=== PATIENT | female | born 1990 | race Caucasian/White ===

== ENCOUNTER 2018-01-11 14:56 | Emergency (ER) | payer MEDICAID ==
[2017-01-29 21:18] VITALS: Wt 51.3 kg
[~2018-01-11 14:56] MED LIST: ALB17R INH; ALBU8.5H IH; ALBU8.5H12 IH; AMOX-362 PO; AMOX-559 PO; ARI10 PO; AUG500 PO; AZI250 PO; AZIT-18 PO; BENA1TAB49 PO; BENZ100C4 PO; CEPH-13 PO; CEPH500T7 PO; CLAR-1 PO; CYCL10TA29 PO; DOCO200C PO; FAMO-67 PO; FERR-53 PO; FOLI-68 PO; HYDR-385 PO; IBUP800T37 PO; LEVO-85 PO; LOR5 PO; LOR5/325 PO; NO ROUTINE MEDS; NORE0.3516 PO; NORE0.3529 PO; NYST1POW25 PO; OMEP-137 PO; ONDA4TAB PO; OXYC-373 PO; PAN40 PO; PER PO; PHEN100T27 PO; PRE20 PO; PREN-127 PO; PROM-110 PO; RANI-324 PO; RANI15SY PO; STERIOD INHALER; [UNRECOGNIZED DRUG - CODE] PO
[2018-01-11 15:08] VITALS: BP 112/70
[2018-01-11] MEDS ORDERED: NITR-105 PO (16:07)
[2018-01-11] MEDS ORDERED: PHEN100T27 PO (16:07)
--- NOTE | 2018-01-11 16:07 | ER Report ---
History and Physical Time Seen By MD: 15:10 Hx. of Stated Complaint: PATIENT STATES THAT SHE THINKS THAT SHE IS GETTING A UTI; PATIENT STATES SHE HAS BEEN GOING ALOT TO THE BATHROOM AND HAS PAIN WHEN SHE PEES HPI/ROS Chief concern: burning with urination HPI: 27 year old female presents with reports of burning with urination and increased frequency. Denies difficulty initiating or stopping urinary stream. Reports chills, denies sweats or fever. Denies nausea, vomiting, diarrhea. Reports history of recurrent UTI, with 3 UTIs in 2017. States she has had frequent UTIs since being a child. Reports sexual intercourse yesterday, denies any forms of control. States LMP 3 weeks ago. Denies vaginal discharge, abnormal vaginal bleeding, or abdominal pain. Review of Systems: General: Reports chills. Denies fevers, sweats. Respiratory: Richar shortness of breath Cardiac: Richar chest pain. GI: Denies nausea, vomiting, diarrhea. : Reports burning with urination and increased frequency. Allergies: Coded Allergies: Sulfa (Sulfonamide Antibiotics) (Verified Allergy, Mild, ITCHING, RASH, ) Home Meds Active Scripts Phenazopyridine Hcl (PHENAZOPYRIDINE HCL) 100 Mg Tablet, 100 MG PO TID Y for PAIN, #12 TAB Prov:MALCOM DUMONT [facility] 01/11/18 Nitrofurantoin Monohyd/M-Cryst (MACROBID 100 MG CAPSULE) 100 Mg Capsule, 100 MG PO BID, #12 CAPSULE Prov:MALCOM DUMONT [facility] 01/11/18 Azithromycin 250 Mg Tab (AZITHROMYCIN 250 MG TAB) 250 Mg Tablet, 1 TAB PO QDAY, #6 TAB Take 2 tabs today and then 1 tab a day until gone. Prov:REX SAWYER PA-C 10/19/17 Reported Medications Albuterol Sulfate 90 Mcg/Act (PROAIR HFA 90 MCG/ACT) 8.5 Gm Hfa.aer.ad, 1-2 PUFF IH 3-4XD, INHALER 09/21/16 Past Medical/Surgical History History of recurrent UTIs. Conditions include heart murmur, asthma, H.pylori. Medical history includes coarctation of the aorta diagnosed at 2 weeks of age. Surgeries include section x 2, and tonsillectomy. Reviewed Nurses Notes: Yes Old Medical Records Reviewed: No Hx Smoking: No Smoking Status: Never Smoker Exposure to Second Hand Smoke?: Yes Hx Substance Use Disorder: No Hx Alcohol Use: No Constitutional Vital Sign - Last 24 Hours 01/11/18 15:08 Temp 97.6 Pulse 74 Resp 17 B/P (MAP) 112/70 Pulse Ox 97 O2 Delivery Room Air Physical Exam Physical exam: General: AOx3 Respiratory: clear to auscultation bilaterally. Cardiac: regular rate and rhythm GI: bowel sounds normoactive all quadrants. Scattered tympany and dullness to percussion. No tenderness to palpation. Negative CVA tenderness. exam deferred After obtaining a thorough HPI and ROS, and physical exam, the following differential diagnoses were considered: UTI Medical Decision Making Data Points Laboratory Hematology Test 01/11/18 15:01 Urine Color Yellow Urine Clarity Slightly-cloudy Urine pH 5.0 pH (4.8-9.5) Urine Specific [place] 1.020 Urine Protein Negative mg/dL (NEGATIVE) Urine Glucose (UA) Negative mg/dL (NEGATIVE) Urine Ketones Negative mg/dL (NEGATIVE) Urine Blood Moderate (NEGATIVE) Urine Nitrite Negative (NEGATIVE) Urine Bilirubin Negative (NEGATIVE) Urine Urobilinogen Negative mg/dL (0.2-1.9) Urine Leukocyte Esterase Moderate (NEGATIVE) Urine RBC 51 /HPF (0-2/HPF) Urine WBC 168 /HPF (0-5/HPF) Urine Squamous Epithelial Cells Many /LPF (</=FEW) Urine Bacteria Few /HPF (NONE-FEW) Urine Mucus None /HPF (NONE-FEW) Urine HCG, Qualitative Negative (NEGATIVE) Chemistry Test 01/11/18 15:01 Urine Color Yellow Urine Clarity Slightly-cloudy Urine pH 5.0 pH (4.8-9.5) Urine Specific [place] 1.020 Urine Protein Negative mg/dL (NEGATIVE) Urine Glucose (UA) Negative mg/dL (NEGATIVE) Urine Ketones Negative mg/dL (NEGATIVE) Urine Blood Moderate (NEGATIVE) Urine Nitrite Negative (NEGATIVE) Urine Bilirubin Negative (NEGATIVE) Urine Urobilinogen Negative mg/dL (0.2-1.9) Urine Leukocyte Esterase Moderate (NEGATIVE) Urine RBC 51 /HPF (0-2/HPF) Urine WBC 168 /HPF (0-5/HPF) Urine Squamous Epithelial Cells Many /LPF (</=FEW) Urine Bacteria Few /HPF (NONE-FEW) Urine Mucus None /HPF (NONE-FEW) Urine HCG, Qualitative Negative (NEGATIVE) Urinalysis Test 01/11/18 15:01 Urine Color Yellow Urine Clarity Slightly-cloudy Urine pH 5.0 pH (4.8-9.5) Urine Specific [place] 1.020 Urine Protein Negative mg/dL (NEGATIVE) Urine Glucose (UA) Negative mg/dL (NEGATIVE) Urine Ketones Negative mg/dL (NEGATIVE) Urine Blood Moderate (NEGATIVE) Urine Nitrite Negative (NEGATIVE) Urine Bilirubin Negative (NEGATIVE) Urine Urobilinogen Negative mg/dL (0.2-1.9) Urine Leukocyte Esterase Moderate (NEGATIVE) Urine RBC 51 /HPF (0-2/HPF) Urine WBC 168 /HPF (0-5/HPF) Urine Squamous Epithelial Cells Many /LPF (</=FEW) Urine Bacteria Few /HPF (NONE-FEW) Urine Mucus None /HPF (NONE-FEW) Urine HCG, Qualitative Negative (NEGATIVE) ED Course/Re-evaluation ED Course Thorough HPI and ROS obtained from patient. Physical exam revealed temperature of 97.6 degrees, negative CVA tenderness, bowel sounds normoactive all quadrants , scattered tympany and dullness to percussion, and nontender to palpation. Differentials considered include urinary tract infection. Urinalysis revealed a urinary tract infection. HcG test negative. Patient treated with nitrofurantoin and phenazopyridine Hcl. Decision to Disposition Date: Jan 11, 2018 Decision to Disposition Time: 16:03 Depart Departure Latest Vital Signs Vital Signs Date Time Temp Pulse Resp B/P (MAP) Pulse Ox O2 Delivery O2 Flow Rate FiO2 01/11/18 15:08 97.6 74 17 112/70 97 Room Air Impression: Primary Impression: Urinary tract infection Condition: Improved Disposition: HOME OR SELF-CARE Referrals: BESSIE MCLAUGHLIN (PCP) New Scripts Phenazopyridine Hcl (PHENAZOPYRIDINE HCL) 100 Mg Tablet 100 MG PO TID Y for PAIN, #12 TAB Prov: MALCOM DUMONT 01/11/18 Nitrofurantoin Monohyd/M-Cryst (MACROBID 100 MG CAPSULE) 100 Mg Capsule 100 MG PO BID, #12 CAPSULE Prov: MALCOM DUMONT 01/11/18 Patient Instructions: Urinary Tract Infection in Women (ED) Additional Instructions: Increase fluid intake. Get plenty of rest. Follow up with your primary care provider in the next week to make sure that the UTI is getting better. Take the prescriptions as directed. Return to the ER if condition worsens. Problem Qualifiers Primary Impression: Urinary tract infection Urinary tract infection type: acute cystitis Hematuria presence: with hematuria Qualified Codes: N30.01 - Acute cystitis with hematuria MALCOM DUMONT Jan 11, 2018 16:07
[2018-01-11] MEDS ORDERED: NITROFURANTOIN MONO 100 MG PO ONE (16:10)
[2018-01-11] MEDS ORDERED: PHENAZOPYRIDINE 200 MG TAB TH 2 TAB/BOTTLE PO ONE (16:10)
== END 2018-01-11 16:34 | disposition home or self-care (01) ==
LOC: ER 15:20
DX: N30.01 Acute cystitis with hematuria (principal)
CPT/HCPCS: 81001; 81025; 87077; 87088; 87186; 99282

== ENCOUNTER 2018-05-06 15:38 | Emergency (ER) | payer SELFPAY ==
[2017-01-29 21:18] VITALS: Wt 52.2 kg
[~2018-05-06 15:38] MED LIST changes: +NITR-105 PO; -RANI-324 PO; +RANI-366 PO
[2018-05-06] MEDS ORDERED: ONDANSETRON 4 MG TAB PO ONE (16:10)
[2018-05-06 16:21] LABS: PLATELET COUNT, AUTOMATED 262 K/uL (150-450)
[2018-05-06] MEDS ORDERED: KETOROLAC 60 MG/2 ML VIAL IM ONE (16:25)
--- NOTE | 2018-05-06 16:47 | ER Report ---
History and Physical Time Seen By MD: 15:50 Hx. of Stated Complaint: PATIENT REPORTS A HEADACHE THAT STARTED LAST NIGHT AND DRY HEAVING THROUGHOUT TODAY HPI/ROS Chief Complaint: "Nausea, vomiting, headache" HPI: 28-year-old female patient reports to the Emergency Department with nausea , vomiting, and left sided orbital headache. She reports the headache started yesterday with her menses and the nausea and vomiting stared today. States, this is not the worst headache she has ever had in her life but she is having some sensitivity to light. Reports the headache is dull an over her left eye. She reports not having an appetite and unable to "keep anything down." Associated chills and fatigue. She reports no alleviating or aggravating factors. She reports no treatments tried. The patient states she did have a sinus infection last Friday that has resolved. ROS: Constitutional: denies fever, reports chills HEENT: reports left sided orbital headache, wears glasses, no change in vision, reports photophobia Respiratory: denies shortness of breath or difficulty breathing CV: denies chest pain GI: reports nausea and vomiting, denies constipation or diarrhea : denies changes in urination Allergies: Coded Allergies: Sulfa (Sulfonamide Antibiotics) (Verified Allergy, Mild, ITCHING, RASH, ) Home Meds Active Scripts Nitrofurantoin Monohyd/M-Cryst (MACROBID 100 MG CAPSULE) 100 Mg Capsule, 100 MG PO BID for 5 Days, CAPSULE Prov:MALCOM DUMONT 05/06/18 Reported Medications Albuterol Sulfate 90 Mcg/Act (PROAIR HFA 90 MCG/ACT) 8.5 Gm Hfa.aer.ad, 1-2 PUFF IH 3-4XD, INHALER 09/21/16 Discontinued Scripts Phenazopyridine Hcl (PHENAZOPYRIDINE HCL) 100 Mg Tablet, 100 MG PO TID Y for PAIN, #12 TAB Prov:MALCOM DUMONT 01/11/18 Nitrofurantoin Monohyd/M-Cryst (MACROBID 100 MG CAPSULE) 100 Mg Capsule, 100 MG PO BID, #12 CAPSULE Prov:MALCOM DUMONT 01/11/18 Azithromycin 250 Mg Tab (AZITHROMYCIN 250 MG TAB) 250 Mg Tablet, 1 TAB PO QDAY, #6 TAB Take 2 tabs today and then 1 tab a day until gone. Prov:REX SAWYER JAVIER 10/19/17 Past Medical/Surgical History Repaired coarctation of the aorta at Asthma diagnosed in [employer] x 2 Reviewed Nurses Notes: Yes Hx Smoking: No Smoking Status: Never Smoker Exposure to Second Hand Smoke?: Yes Hx Substance Use Disorder: No Hx Alcohol Use: No Constitutional Vital Sign - Last 24 Hours 05/06/18 05/06/18 05/06/18 05/06/18 15:42 15:47 16:00 16:08 Pulse 80 Resp 20 B/P (MAP) 118/72 (87) 102/76 (85) Pulse Ox 94 05/06/18 05/06/18 05/06/18 05/06/18 16:30 16:38 17:00 17:08 Pulse 69 57 B/P (MAP) 95/57 (70) 85/61 (69) Pulse Ox 93 94 Physical Exam General: 28-year-old in no acute distress HEENT: normocephalic, atraumatic, TMs BL bonita butts without effusion, pupils BL equal, round, reactive to light and accommodation Respiratory: BL CTA CV: Clear S1 S2, present murmur GI: normoactive BS x 4, no hepato-splenomegaly, suprapubic pain on palpation Musculoskeletal: Moves all extremities Differential diagnoses considered: migraine, gastroenteritis, UTI Medical Decision Making Data Points Result Diagram: 05/06/18 1616 05/06/18 1616 Laboratory Hematology Test 05/06/18 15:45 05/06/18 16:16 Urine Color Red Urine Clarity Slightly-cloudy Urine pH 6.0 pH (4.8-9.5) Urine Specific [employer] 1.004 Urine Protein 100 mg/dL (NEGATIVE) Urine Glucose (UA) Negative mg/dL (NEGATIVE) Urine Ketones Negative mg/dL (NEGATIVE) Urine Blood Large (NEGATIVE) Urine Nitrite Negative (NEGATIVE) Urine Bilirubin Negative (NEGATIVE) Urine Urobilinogen Negative mg/dL (0.2-1.9) Urine Leukocyte Esterase Trace (NEGATIVE) Urine RBC 114 /HPF (0-2/HPF) Urine WBC 33 /HPF (0-5/HPF) Urine Squamous Epithelial Cells Many /LPF (</=FEW) Urine Bacteria Negative /HPF (NONE-FEW) Urine Mucus None /HPF (NONE-FEW) Red Blood Count 5.48 M/uL (4.17-5.56) Mean Corpuscular Volume 83.6 fL (80.0-96.0) Mean Corpuscular Hemoglobin 28.7 pg (26.0-33.0) Mean Corpuscular Hemoglobin Concent 34.4 g/dL (32.0-36.0) Red Cell Distribution Width 13.2 % (11.5-14.5) Mean Platelet Volume 7.5 fL (7.2-11.1) Neutrophils (%) (Auto) 81.3 % (39.4-72.5) Lymphocytes (%) (Auto) 13.7 % (17.6-49.6) Monocytes (%) (Auto) 4.4 % (4.1-12.4) Eosinophils (%) (Auto) 0.2 % (0.4-6.7) Basophils (%) (Auto) 0.4 % (0.3-1.4) Nucleated RBC Relative Count (auto) 0.0 /100WBC Neutrophils # (Auto) 5.0 K/uL (2.0-7.4) Lymphocytes # (Auto) 0.8 K/uL (1.3-3.6) Monocytes # (Auto) 0.3 K/uL (0.3-1.0) Eosinophils # (Auto) 0.0 K/uL (0.0-0.5) Basophils # (Auto) 0.0 K/uL (0.0-0.1) Nucleated RBC Absolute Count (auto) 0.00 K/uL Sodium Level 140 mmol/L (137-145) Potassium Level 3.6 mmol/L (3.5-5.0) Chloride Level 105 mmol/L (98-107) Carbon Dioxide Level 22 mmol/L (22-31) Blood Urea Nitrogen 9 mg/dl (7-18) Creatinine 0.60 mg/dl (0.52-1.04) Glomerular Filtration Rate Calc > 60.0 Random Glucose 90 mg/dl (75-110) Calcium Level 9.1 mg/dl (8.4-10.2) Total Bilirubin 0.8 mg/dl (0.2-1.3) Aspartate Amino Transf (AST/SGOT) 28 U/L (0-35) Alanine Aminotransferase (ALT/SGPT) 23 U/L (0-56) Alkaline Phosphatase 52 U/L (0-126) Total Protein 7.9 g/dl (6.3-8.2) Albumin 4.4 g/dl (3.5-5.0) Chemistry Test 05/06/18 15:45 05/06/18 16:16 Urine Color Red Urine Clarity Slightly-cloudy Urine pH 6.0 pH (4.8-9.5) Urine Specific [employer] 1.004 Urine Protein 100 mg/dL (NEGATIVE) Urine Glucose (UA) Negative mg/dL (NEGATIVE) Urine Ketones Negative mg/dL (NEGATIVE) Urine Blood Large (NEGATIVE) Urine Nitrite Negative (NEGATIVE) Urine Bilirubin Negative (NEGATIVE) Urine Urobilinogen Negative mg/dL (0.2-1.9) Urine Leukocyte Esterase Trace (NEGATIVE) Urine RBC 114 /HPF (0-2/HPF) Urine WBC 33 /HPF (0-5/HPF) Urine Squamous Epithelial Cells Many /LPF (</=FEW) Urine Bacteria Negative /HPF (NONE-FEW) Urine Mucus None /HPF (NONE-FEW) White Blood Count 6.1 k/uL (4.5-11.0) Red Blood Count 5.48 M/uL (4.17-5.56) Hemoglobin 15.7 g/dL (12.0-16.0) Hematocrit 45.8 % (34.0-47.0) Mean Corpuscular Volume 83.6 fL (80.0-96.0) Mean Corpuscular Hemoglobin 28.7 pg (26.0-33.0) Mean Corpuscular Hemoglobin Concent 34.4 g/dL (32.0-36.0) Red Cell Distribution Width 13.2 % (11.5-14.5) Platelet Count 262 K/uL (150-450) Mean Platelet Volume 7.5 fL (7.2-11.1) Neutrophils (%) (Auto) 81.3 % (39.4-72.5) Lymphocytes (%) (Auto) 13.7 % (17.6-49.6) Monocytes (%) (Auto) 4.4 % (4.1-12.4) Eosinophils (%) (Auto) 0.2 % (0.4-6.7) Basophils (%) (Auto) 0.4 % (0.3-1.4) Nucleated RBC Relative Count (auto) 0.0 /100WBC Neutrophils # (Auto) 5.0 K/uL (2.0-7.4) Lymphocytes # (Auto) 0.8 K/uL (1.3-3.6) Monocytes # (Auto) 0.3 K/uL (0.3-1.0) Eosinophils # (Auto) 0.0 K/uL (0.0-0.5) Basophils # (Auto) 0.0 K/uL (0.0-0.1) Nucleated RBC Absolute Count (auto) 0.00 K/uL Glomerular Filtration Rate Calc > 60.0 Calcium Level 9.1 mg/dl (8.4-10.2) Total Bilirubin 0.8 mg/dl (0.2-1.3) Aspartate Amino Transf (AST/SGOT) 28 U/L (0-35) Alanine Aminotransferase (ALT/SGPT) 23 U/L (0-56) Alkaline Phosphatase 52 U/L (0-126) Total Protein 7.9 g/dl (6.3-8.2) Albumin 4.4 g/dl (3.5-5.0) Urinalysis Test 05/06/18 15:45 Urine Color Red Urine Clarity Slightly-cloudy Urine pH 6.0 pH (4.8-9.5) Urine Specific [employer] 1.004 Urine Protein 100 mg/dL (NEGATIVE) Urine Glucose (UA) Negative mg/dL (NEGATIVE) Urine Ketones Negative mg/dL (NEGATIVE) Urine Blood Large (NEGATIVE) Urine Nitrite Negative (NEGATIVE) Urine Bilirubin Negative (NEGATIVE) Urine Urobilinogen Negative mg/dL (0.2-1.9) Urine Leukocyte Esterase Trace (NEGATIVE) Urine RBC 114 /HPF (0-2/HPF) Urine WBC 33 /HPF (0-5/HPF) Urine Squamous Epithelial Cells Many /LPF (</=FEW) Urine Bacteria Negative /HPF (NONE-FEW) Urine Mucus None /HPF (NONE-FEW) ED Course/Re-evaluation ED Course History and physical examination obtained. Differential diagnoses considered and shared with the patient. CBC, CMP, and UA were obtained. The patient is having a urinary tract infection. She was treated with Zofran for her nausea and Toradol for her headache in the emergency department today She reports that she feels much better and would like to go home. She has been sent home for self-care on Macrobid and encouraged to return to the emergency department if her condition does not improve. Decision to Disposition Date: May 06, 2018 Decision to Disposition Time: 17:18 Depart Departure Latest Vital Signs Vital Signs Date Time Temp Pulse Resp B/P (MAP) Pulse Ox O2 Delivery O2 Flow Rate FiO2 05/06/18 17:08 57 94 05/06/18 17:00 85/61 (69) 05/06/18 15:42 20 Impression: Primary Impression: UTI (urinary tract infection) Additional Impression: Head ache Condition: Improved Disposition: HOME OR SELF-CARE Referrals: BESSIE MCLAUGHLIN (PCP) New Scripts Nitrofurantoin Monohyd/M-Cryst (MACROBID 100 MG CAPSULE) 100 Mg Capsule 100 MG PO BID for 5 Days, CAPSULE Prov: MALCOM DUMONT 05/06/18 Patient Instructions: Acute Headache (ED), Urinary Tract Infection in Women (ED ) Additional Instructions: Take antibiotics once in the morning and once at night for five days. We will call you if the cultures indicates we need to change your antibiotic. Return to the Emergency Department if your condition worsens. Continue to rest and push fluids. Advance diet as tolerated. Problem Qualifiers Primary Impression: UTI (urinary tract infection) Urinary tract infection type: acute cystitis Hematuria presence: with hematuria Qualified Codes: N30.01 - Acute cystitis with hematuria Additional Impression: Head ache Headache type: unspecified Headache chronicity pattern: acute headache Intractability: not intractable Qualified Codes: R51 - Headache MALCOM DUMONT May 06, 2018 16:47
[2018-05-06 17:00] VITALS: BP 85/61
[2018-05-06] MEDS ORDERED: NITR-105 PO (17:24)
== END 2018-05-06 17:34 | disposition home or self-care (01) ==
LOC: ER 15:40
DX: N30.01 Acute cystitis with hematuria (principal); R51 Headache
CPT/HCPCS: 81001; 85025; 87088; 96372; 99283; J1885; S0119; 82040; 82247; 82310; 82374; 82435; 82565; 82947; 84075; 84132; 84155; 84295; 84450; 84460; 84520

== ENCOUNTER 2018-07-01 20:03 | Emergency (ER) | payer MEDICAID ==
[2017-01-29 21:18] VITALS: BMI 27.3
[2018-07-01 20:06] VITALS: BP 108/60
[2018-07-01] MEDS ORDERED: CEPH500T7 PO (20:16)
--- NOTE | 2018-07-01 20:16 | ER Report ---
History and Physical Time Seen By MD: 20:07 HPI/ROS CHIEF COMPLAINT: Rash HISTORY OF PRESENT ILLNESS: Patient is a 28-year-old female who presents the ED with complaint of a rash that occurred today. She states that it is not really itchy but feels like her throat has been itchy sometimes. The rashes noted on her abdomen and chest. She denies any trouble breathing. She has not noted any tongue or lip swelling. She states that she was recently diagnosed with a urinary tract infection yesterday and has just started Macrobid for this. She does not believe she has been on Macrobid in the past for a urinary tract infection. She states that she is but is uncertain how far along she has. She is diagnosed with a urinary tract infection by the women's clinic. She denies any fever. REVIEW OF SYSTEMS: Constitutional: No fever, no chills. Cardiovascular: No chest pain, no palpitations. Respiratory: No cough, no shortness of breath. Gastrointestinal: See history of present illness. Musculoskeletal: No back pain. Skin: See history of present illness. Allergies: Coded Allergies: Sulfa (Sulfonamide Antibiotics) (Verified Allergy, Mild, ITCHING, RASH, ) Home Meds Active Scripts Nitrofurantoin Monohyd/M-Cryst (MACROBID 100 MG CAPSULE) 100 Mg Capsule, 100 MG PO BID for 5 Days, CAPSULE Prov:MALCOM DUMONT [employer] 05/06/18 Reported Medications Albuterol Sulfate 90 Mcg/Act (PROAIR HFA 90 MCG/ACT) 8.5 Gm Hfa.aer.ad, 1-2 PUFF IH 3-4XD, INHALER 09/21/16 Reviewed Nurses Notes: Yes Old Medical Records Reviewed: Yes Hx Smoking: No Smoking Status: Never Smoker Exposure to Second Hand Smoke?: Yes Hx Substance Use Disorder: No Hx Alcohol Use: No Physical Exam General Appearance: The patient is alert, has no immediate need for airway protection and no signs of toxicity. Patient appears be no acute distress. Eyes: Pupils equal and round no pallor or injection. ENT, Mouth: Mucous membranes are moist. Respiratory: There are no retractions, lungs are clear to auscultation. Cardiovascular: Regular rate and rhythm. Skin: There is an erythematous faint this, fine maculopapular rash noted on the abdomen and chest. No lip or tongue swelling appreciated. Musculoskeletal: Neck is supple non tender. Extremities are nontender, nonswollen and have full range of motion. Medical Decision Making ED Course/Re-evaluation ED Course Discussed with her given that she just her the antibiotic and now she developed a rash is possible that she is allergic to Macrobid. Will discontinue this and have her start Keflex for her urinary tract infection. She states that [facility] did obtain a urine culture as well. Decision to Disposition Date: Jul 01, 2018 Decision to Disposition Time: 20:15 Depart Departure Impression: Primary Impression: UTI (urinary tract infection) Additional Impression: Rash Condition: Improved Disposition: HOME OR SELF-CARE Referrals: BESSIE MCLAUGHLIN (PCP) New Scripts Cephalexin 500 Mg Tab (KEFLEX 500 MG TAB) 500 Mg Tablet 500 MG PO Q8H, #21 TAB Prov: REX SAWYER PA-C 07/01/18 Patient Instructions: Acute Rash (ED), Urinary Tract Infection in Women (ED) Additional Instructions: Stay well-hydrated. Follow-up with primary care provider in 2-3 days. If having any worsening or concerning symptoms may return to the emergency department. Problem Qualifiers Primary Impression: UTI (urinary tract infection) Urinary tract infection type: acute cystitis Hematuria presence: without hematuria Qualified Codes: N30.00 - Acute cystitis without hematuria REX SAWYER PA-C Jul 01, 2018 20:16
== END 2018-07-01 20:20 | disposition home or self-care (01) ==
LOC: ER 20:18
DX: N30.00 Acute cystitis without hematuria (principal); R21 Rash and other nonspecific skin eruption
CPT/HCPCS: 99281

== ENCOUNTER 2019-02-03 12:48 | Inpatient (IN) | payer MEDICAID ==
[2019-02-03] VITALS (26 sets, daily range): BP systolic 79–110; BP diastolic 48–64; Ht 146.1 cm; Wt 66.2 kg
[~2019-02-03] VITALS: Ht 146.1 cm; Wt 66.2 kg
[2019-02-03] MEDS ORDERED: LR(*) 1000 ML BAG 1,000 ML IV PRN ×2 (13:51→18:24)
[2019-02-03] MEDS ORDERED: FLUSH 10 ML SYR IVP PRN (13:55)
[2019-02-03] MEDS ORDERED: LIDOCAINE/SOD BICARB 8.4% SYR ONE (13:56)
[2019-02-03 14:26] LABS: PLATELET COUNT, AUTOMATED 203 K/uL (150-450)
[2019-02-03] MEDS ORDERED: FAMOTIDINE(*) 20MG/50ML PREMIX 50 ML IVPB ONE (15:16)
[2019-02-03] MEDS ORDERED: ceFAZolin(*) 2GM/D5W 50ML 50 ML IVPB ONE ×2 (15:16→15:18)
[2019-02-03] MEDS ORDERED: LR(*) 1000 ML BAG 1,000 ML IV SCH (15:18)
[2019-02-03] MEDS ORDERED: FAMOTIDINE 20 MG/50 ML PREMIX IVPB ONE (15:20)
[2019-02-03] MEDS ORDERED: fentaNYL CITR 100 MCG/2 ML AMP ONE (15:24)
[2019-02-03] MEDS ORDERED: ONDANSETRON 4 MG/2 ML VIAL ONE (15:24)
--- NOTE | 2019-02-03 15:40 | History & Physical ---
History of Present Illness Age of Patient: 28 : 4 Para or TPAL: 2011 EDC per LMP: Feb 15, 2019 EDC per U/S: Feb 15, 2019 Estimated Gestational Age: 38.2 Chief Complaint Contractions and headache History of Present Illness Patient is a 28 yo at 38w2d. She comes to the hospital with c/o contractions which have increased over the last few hours. She denies CP, SOB, F/C, N/V, RUQ pain, changes in vision, vaginal bleeding or discharge, LOF. +FM. Here obstetric history has been uncomplicated. She has a previous history of section x2 and would like a repeat. She would also like a tubal ligation. No other concerns or complaints. 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 No noxious habits. Family History: FH: cancer MAT GRANDFATHER, Onset:Unknown (BLADDER AND LUNG CANCER) No Family History of: FH: diabetes mellitus FH: heart disease FH: hypertension Malignant hyperthermia Med Rec Home Meds Reported Medications Vits W-Ca,Fe,Fa(<1MG) ( VITAMINS) 1 Each Tablet, 1 EACH PO D AILY, TAB 01/26/19 Albuterol Sulfate 90 Mcg/Act (PROAIR HFA 90 MCG/ACT) 8.5 Gm Hfa.aer.ad, 1-2 PUFF IH 3-4XD, INHALER 09/21/16 Review of Systems All Systems Reviewed/Normal: Yes, Except as Noted Exam General Exam General Apperance: Alert/Awake/No Acute Distress Neuro: No Gross deficits Eyes: Normal Extraocular Movement & Vison Cardiovascular: Regular Rate and Rhythm Abdomen: Gravid - Non-Tender Extremities: No Cyanosis,Clubbing or Edema Psychological: Alert & Oriented X3, Appropriate Mood & Affect Cervical Dialation: 5 Cervical Effacement (%): 80 Cervical Consistency: Soft Cervical Position: Mid Station: -2 Presentation: Vertex Uterine Contractions(Q min): 7 Uterine Contraction Strength: Moderate UC Resting Tone: Soft Fetus Feeling Movement?: Yes Heart Tone Variabilty: Moderate FHT Accelerations: 15X15 FHT Decelerations: Variable FHT Category: II Medical Decision Making Data Points Result Diagram: 02/03/19 1414 VTE Prophylasis: Adult Deep Vein Thrombosis/Pulmonary: No Pharmacological Contraindicati: Pt at Low Risk for VTE Mechanical Contraindications: Pt at Low Risk for VTE Assessment and Plan Hospital Day: 0 VIDEO PRODUCTION ASSISTANT Assessment: Stable (Patient doing well and is active labor. Will proceed with repeat lower transverse section.) VIDEO PRODUCTION ASSISTANT Plan: Routine Labor Care (Proceed to the ER for repeat lower transverse section and bilateral tubal ligation.) LIBAN ARELLANO MD Feb 03, 2019 15:40
[2019-02-03] MEDS ORDERED: ePHEDrine 25 MG/5 ML DISP.SYR IVP ONE (15:48)
[2019-02-03] MEDS ORDERED: MIDAZOLAM 2 MG/2 ML VIAL ONE ×2 (16:50→17:01)
[2019-02-03] MEDS ORDERED: PROPOFOL EMUL(*) 10MG/ML 20 ML 20 ML ONE (17:03)
[2019-02-03] MEDS ORDERED: KETOROLAC 30 MG/ML VIAL ONE (17:48)
[2019-02-03] MEDS ORDERED: OXYTOCIN 30 UNIT/D5LR 500 ML 500 ML IV PRN (17:51)
[2019-02-03] MEDS ORDERED: PROMETHAZINE 25 MG/ML 1 ML AMP IVP PRN (17:55)
[2019-02-03] MEDS ORDERED: ONDANSETRON 4 MG/2 ML VIAL IV PRN (17:55)
[2019-02-03] MEDS ORDERED: ACETAMINOPHEN 325 MG TAB PO PRN (17:55)
[2019-02-03] MEDS ORDERED: ZOLPIDEM TARTRATE 5 MG TAB PO PRN (17:55)
[2019-02-03] MEDS ORDERED: LANOLIN OINT 7 GM TUBE TP PRN (17:55)
--- NOTE | 2019-02-03 18:13 | Post Operative Note ---
Operative Note - [facility] Operative Day Date: Feb 03, 2019 Time: 18:00 Physicians Surgeon: Paula Vail MD Superintendent Refuse Disposal: Charlene Waggoner PA-C Anesthesia: Holly Rivera CRNA Diagnosis Pre-Op Diagnosis: 28 yo at 38w2d c/w 8w sono with previous history of section in active labor with desire for repeat section, desire for bilateral tubal ligation Post-Op Diagnosis: Same Procedure Findings: Normal uterus, tubes, ovaries. Male infant born at 1622 hrs in cephalic presentation with light meconium noted on rupture of the amniotic bag. Placenta delivered complete and intact at 1625. Baby weight 2930g. Apgars 8/9. Procedure(s): 1.Repeat lower transverse section via Pfannenstiel skin incision 2. Bilateral tubal ligation via Adams protcol The patient was taken to the operating room where spinal anesthesia was found to be adequate. She was then prepped and draped in the normal sterile fashion in the dorsal supine position with a leftward tilt. A Pfannenstiel skin incision was then made with the scalpel and carried through to the underlying layer of fascia with the bovie. The fascia was incised in the midline and the incision extended laterally with the Gee scissors. The superior aspect of the fascial incision was then grasped with the Sahil clamps, elevated, and the underlying rectus muscles dissected off bluntly. Attention was then turned to the inferior aspect of this incision, which, in a similar fashion, was grasped, tented up with the Sahil clamps, and the rectus muscle dissected off bluntly. The rectus muscles were then in the midline, and the peritoneum identified, tented up and entered sharply with the Metzenbaum scissors. The peritoneal incision was then extended superiorly and inferiorly with good visualization of the bladder. The bladder blade was then inserted and the vesicouterine peritoneum identified, grasped with the pick-ups, and entered sharply with the Metzenbaum scissors. This incision was then extended laterally and the bladder flap created digitally. The bladder blade was then reinserted and the lower uterine segment incised in a transverse fashion with the scalpel. The uterine incision was then extended laterally digitally. The bladder blade was removed and the infants head delivered atraumatically with a loose body cord followed by the rest of the body. The nose and mouth were suctioned, and the cord clamped and cut. The was handed off to the pediatric team. Cord blood was collected. Cord gasses were not collected. The placenta delivered spontaneously and intact with gentle traction. The uterus was then exteriorized and cleared of all clots and debris. The uterine incision was repaired with 0-vicryl in a running, locked fashion. A second layer of 0-monocryl was used to obtain hemostasis. Attention was then turned to the tubal ligation portion of the procedure. The right fallopian tube was then located and followed out to the fimbriated end. A small window was created in the mesosalpinx using the bovie device. A parkland technique was completed with tying of 0-plain gut suture at the distal end, followed but the tying of 0-plain gut suture at the proximal end of the tube. The portion of the tube in between was cut and handed off for pathology. The cut fallopian tube edges were then cauterized. Adequate hemostasis was noted. The same procedure was then completed on the left fallopian tube. The gutters were then cleared of all clots and debris. The uterus was then returned to the abdomen and hemostasis was again noted. The muscle and peritoneal layer were closed en block using 2-0 vicryl in a running non-locked fashion. The fascia was then closed using 0-vicryl in a non-locked fashion. The subcutaneous layer was closed using 2-0 vicryl in a running non-locked manner. The skin was closed using 4-0 vicryl and dermabond. The patient tolerated the procedure well. Sponge, lap, and needle counts were correct x2. The patient was taken to the recovery room in stable condition. Specimen Removed:(Maybe N/A): Bilateral tubal remnants Complications: None Fluids Fluids: 2300 cc of crystalloid Estimated Blood Loss: 600 cc Dictated Date OP Note Dictated: Feb 03, 2019 Time OP Note Dictated: 18:04 Copies to: LOUIS VARELA MD ; PAULA VAIL MD Feb 03, 2019 18:06
[2019-02-03] MEDS ORDERED: HYDROmorphone HCL 2 MG/ML SDV ONE (18:21)
[2019-02-03] MEDS ORDERED: HYDROmorphone HCL 2 MG/ML SDV IVP PRN (18:25)
[2019-02-03] MEDS ORDERED: NALOXONE HCL 0.4 MG/ML VIAL IV PRN (18:25)
[2019-02-03] MEDS ORDERED: LR(*) 1000 ML BAG 1,000 ML ONE (18:27)
--- NOTE | 2019-02-03 19:09 | Anesthesia OB Pre-Anes Eval ---
History of Present Illness Anesthesia Start Date: Feb 03, 2019 Anesthesia Start Time: 16:30 OB Anesthesia Diagnosis: spontaneous labor, repeat c/section, other (Pt with 2 prior C/S with spontaneous labor and dialation. Dr. 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 Foster in [facility]. No recent visits since 2014) Surgical History: other Previous Anesthesia: epidural, spinal Attended Childbirth Classes?: No Hx Anesthesia Reactions: No Hx Family Anesthesia Reaction: No Current Medications: other (PNV) Home Meds Reported Medications Vits W-Ca,Fe,Fa(<1MG) ( VITAMINS) 1 Each Tablet, 1 EACH PO DAILY, TAB 01/26/19 Albuterol Sulfate 90 Mcg/Act (PROAIR HFA 90 MCG/ACT) 8.5 Gm Hfa.aer.ad, 1-2 PUFF IH 3-4XD, INHALER 09/21/16 Allergies: Coded Allergies: Sulfa (Sulfonamide Antibiotics) (Verified Allergy, Mild, ITCHING, RASH, 07/12/17) Anesthesia OB ROS Pulmonary: asthma; No smoker (pks/day/yrs), No other Airway Class: lll Cardiovascular ROS: other (Coartation of arorta at two weeks of age. Pt denies any heart related activity limitations. She has not seen her machine molder squeeze since 2014, she self reports that she received a good report at that time.) GI ROS: NPO (ate full meal at 11 am. she is aware of increased risk of vomiting) Last Solids Date: Feb 03, 2019 Last Solids Time: 11:00 ASA Classification: 3 (Emergent) Assessment and Plan Anesthesia Plan: SAB Assessment: Fentanyl only in SAB Assessment Petite female with some dental deformities, hx of ADHD and autism, functioning on a high level as mother of 2. is at her side. She is calm and appropriate and delightful with a good sense of humor and a good memory of her 2 prior C/Ss. CORINE STUBBS CRNA Feb 03, 2019 19:09
[2019-02-03] MEDS: DOCUSATE CALCIUM 240 MG CAP PO SCH (20:12)
[2019-02-03] MEDS: FAMOTIDINE 20 MG TAB PO SCH (20:12)
[2019-02-03] MEDS: DLR(*) 1000 ML BAG 1,000 ML IV PRN (20:14)
[2019-02-03] MEDS: SIMETHICONE 80 MG CHEW CHEW PRN (22:13)
[2019-02-03] MEDS: KETOROLAC 30 MG/ML VIAL IVP SCH (23:50)
[2019-02-04] MEDS ORDERED: KETOROLAC 30 MG/ML VIAL IVP SCH
[2019-02-04 01:07] VITALS: BP 98/55
[2019-02-04 03:03] VITALS: BP 96/53
[2019-02-04] MEDS: DLR(*) 1000 ML BAG 1,000 ML IV PRN (04:08)
[2019-02-04 06:07] LABS: PLATELET COUNT, AUTOMATED 153 K/uL (150-450)
[2019-02-04] MEDS: KETOROLAC 30 MG/ML VIAL IVP SCH ×2 (06:18→11:45)
[2019-02-04 07:23] VITALS: BP 98/43
[2019-02-04] MEDS: FAMOTIDINE 20 MG TAB PO SCH ×2 (09:03→21:09)
[2019-02-04] MEDS: DOCUSATE CALCIUM 240 MG CAP PO SCH ×2 (09:03→21:09)
--- NOTE | 2019-02-04 09:17 | OB/GYN Progress Note ---
OB Subjective Progress Notes Subjective 28 yo s/p repeat lower transverse section. States she is feeling fine but tired and weak. She has ambulated twice and has reported feeling light headed x1. Pain controlled. Tolerating po diet. Voiding per flores catheter. Has not yet passed flatus. : Vaginal Bleeding (Minimal) Pain: Comfortable, Tolerating PO Pain Meds Eyes: No Visual Disturbances OB Objective Physical Exam Vital Signs Date Time Temp Pulse Resp B/P (MAP) Pulse Ox O2 Delivery O2 Flow Rate FiO2 02/04/19 07:23 98.3 77 98/43 (61) 100 Room Air 02/04/19 03:03 18 Intake and Output 02/04/19 07:00 Intake Total 4100 ml Output Total 715 ml Balance 3385 ml Intake IV Total 4100 ml Output Urine Total 715 ml General Appearance: Alert/Awake/No Acute Distress Neurological: No Gross deficits Eyes: Normal Extraocular Movement & Vison Respiratory: No Respiratory Distress Abdomen: Bowel Sounds Present (low pitched), Fundus Firm, Tender, Other (Moderate distension) Incision: Clean, Dry, Intact, Dermabond Extremities: No Cyanosis,Clubbing or Edema, Edema (1+ ) Psychological: Alert & Oriented X3, Appropriate Mood & Affect Result Diagram: 02/04/19 0558 02/04/19 0558 Repeat H/H due at [address] of the Abd/Pel w/wo contrast orderd Assessment and Plan Post Op Day: 1 Hospital Day: 2 RADIO STATION ENGINEER Assessment: Stable (Despite low blood pressures. No tachycardia pr esent.) RADIO STATION ENGINEER Plan: Routine Post- Care (CT of the Abd/Pel w/wo contrast ordered. Repeat H/H ordered at 1200 hrs as well. Will follow up. Disposition in house. ) LIBAN ARELLANO MD Feb 04, 2019 09:12
[2019-02-04] MEDS ORDERED: IOPAMIDOL 76% 150 ML INFUS BTL 150 ML ONE (09:25)
--- NOTE | 2019-02-04 11:00 | RADIOLOGY IMAGING REPORT ---
FACILITY: [facility] PATIENT NAME: Almita Ovalle : 1990 MR: [id number] V: [id number] EXAM DATE: ORDERING PHYSICIAN: LIBAN ARELLANO TECHNOLOGIST: Location: [facility] Patient: Almita Ovalle : 1990 Visit/Account:[id number] Date of Sevice: 02/04/2019 CT ABDOMEN PELVIS W & W/O CONTRAST HISTORY: Abdominal distention post section. TECHNIQUE: CT abdomen and pelvis without and with intravenous contrast. One of the following dose optimization techniques was utilized in the performance of this exam: Autom ated exposure control; adjustment of the mA and/or kV according to the patient's size; or use of an i terative reconstruction technique. Specific details can be referenced in the facility's radiology C T exam operational policy. CONTRAST: None. COMPARISON: None. FINDINGS: Visualized lung bases: Slightly decreased attenuation cardiac blood pool relative to myocardium sugg esting anemia. Hepatobiliary: Negative. Spleen: Negative; several small accessory splenules. Adrenals: Negative. Pancreas: Negative. Kidneys/: Nonobstructing 4 mm stone lower pole left kidney. Several too small to characterize low attenuating renal cortical foci, likely cysts. Balloontipped catheter within decompressed urinary jose carlos dder. Uterus is enlarged consistent with its recent state. Gas and intermediate attenuatin g debris within endometrial canal at lower uterine segment, presumably residual blood products. Separ ate from endometrium is a large hypoperfusing intermediate attenuating region or gross defect spannin g the anterior wall of uterus, approximately 11 cm length by 5 cm AP and 8 cm transverse (series 6/im age 89 and series 8/image 71). Ovaries not able to be well visualized. Mild bilateral adnexal varices . GI: Stomach unremarkable. Scattered gas-filled small bowel loops without ayaan distention. Proximal colon gas-filled and prominent but without gross wall thickening. Distal colon decompressed. Vessels/spaces/nodes: Small volume simple attenuating perihepatic free fluid. Small volume additiona l free fluid within pelvis, dependently layering within cul-de-sac, intermediate in attenuation and c oncerning for hemorrhage (series 2/image 104). No grossly organized fluid collection. No bulky adenop athy. Scattered punctate foci of pneumoperitoneum consistent with recent surgery. Bones/soft tissues: Edema, fluid and gas scattered throughout the rectus sheaths bilateral and infra umbilical. Sequela of recent section within the subcutaneous tissues. Osseous structures unr emarkable. IMPRESSION: 1. appearing uterus with large hypoperfusing region or defect spanning the anterior wall a s above. Although nonspecific and not a typical CT appearance for dehiscence, considerations would in clude edema, vascular compromise or atypical appearance of dehiscence with contained hematoma. 2. Small volume free fluid right upper quadrant and pelvis, within the pelvis partially hemorrhagic w ith layering blood products. 3. Gas-filled but nondistended small bowel loops with gas filled and mildly distended but otherwise u nremarkable proximal colon most suggestive of mild ileus. 4. Findings suggestive of anemia. Results were called to Dr. LIBAN ARELLANO at 02/04/2019 10:54 AM. Report Dictated By: Ed Dey MD at 02/04/2019 10:27 AM Report E-Signed By: Ed Dey MD at 02/04/2019 10:55 AM WSN:[id number]
[2019-02-04 11:09] VITALS: BP 94/51
--- NOTE | 2019-02-04 11:49 | Anesthesia Post Eval Note ---
Anesthesia Post Eval Note Hematology Test 02/03/19 14:14 02/04/19 05:58 Total Bilirubin 0.4 mg/dl (0.2-1.3) Aspartate Amino Transf (AST/SGOT) 21 U/L (0-35) Alanine Aminotransferase (ALT/SGPT) 27 U/L (0-56) Alkaline Phosphatase 147 U/L (0-126) Total Protein 6.3 g/dl (6.3-8.2) Albumin 3.6 g/dl (3.5-5.0) Red Blood Count 3.09 M/uL (4.17-5.56) Mean Corpuscular Volume 85.2 fL (80.0-96.0) Mean Corpuscular Hemoglobin 29.0 pg (26.0-33.0) Mean Corpuscular Hemoglobin Concent 34.0 g/dL (32.0-36.0) Red Cell Distribution Width 14.3 % (11.5-14.5) Mean Platelet Volume 7.3 fL (7.2-11.1) Neutrophils (%) (Auto) 79.8 % (39.4-72.5) Lymphocytes (%) (Auto) 10.1 % (17.6-49.6) Monocytes (%) (Auto) 9.4 % (4.1-12.4) Eosinophils (%) (Auto) 0.4 % (0.4-6.7) Basophils (%) (Auto) 0.3 % (0.3-1.4) Nucleated RBC Relative Count (auto) 0.0 /100WBC Neutrophils # (Auto) 4.8 K/uL (2.0-7.4) Lymphocytes # (Auto) 0.6 K/uL (1.3-3.6) Monocytes # (Auto) 0.6 K/uL (0.3-1.0) Eosinophils # (Auto) 0.0 K/uL (0.0-0.5) Basophils # (Auto) 0.0 K/uL (0.0-0.1) Nucleated RBC Absolute Count (auto) 0.00 K/uL Sodium Level 131 mmol/L (137-145) Potassium Level 3.7 mmol/L (3.5-5.0) Chloride Level 107 mmol/L (98-107) Carbon Dioxide Level 23 mmol/L (22-31) Blood Urea Nitrogen 5 mg/dl (7-18) Creatinine 0.40 mg/dl (0.52-1.04) Glomerular Filtration Rate Calc > 60.0 Random Glucose 101 mg/dl (75-110) Calcium Level 7.7 mg/dl (8.4-10.2) Chemistry Test 02/03/19 14:14 02/04/19 05:58 Total Bilirubin 0.4 mg/dl (0.2-1.3) Aspartate Amino Transf (AST/SGOT) 21 U/L (0-35) Alanine Aminotransferase (ALT/SGPT) 27 U/L (0-56) Alkaline Phosphatase 147 U/L (0-126) Total Protein 6.3 g/dl (6.3-8.2) Albumin 3.6 g/dl (3.5-5.0) White Blood Count 6.0 k/uL (4.5-11.0) Red Blood Count 3.09 M/uL (4.17-5.56) Hemoglobin 8.9 g/dL (12.0-16.0) Hematocrit 26.3 % (34.0-47.0) Mean Corpuscular Volume 85.2 fL (80.0-96.0) Mean Corpuscular Hemoglobin 29.0 pg (26.0-33.0) Mean Corpuscular Hemoglobin Concent 34.0 g/dL (32.0-36.0) Red Cell Distribution Width 14.3 % (11.5-14.5) Platelet Count 153 K/uL (150-450) Mean Platelet Volume 7.3 fL (7.2-11.1) Neutrophils (%) (Auto) 79.8 % (39.4-72.5) Lymphocytes (%) (Auto) 10.1 % (17.6-49.6) Monocytes (%) (Auto) 9.4 % (4.1-12.4) Eosinophils (%) (Auto) 0.4 % (0.4-6.7) Basophils (%) (Auto) 0.3 % (0.3-1.4) Nucleated RBC Relative Count (auto) 0.0 /100WBC Neutrophils # (Auto) 4.8 K/uL (2.0-7.4) Lymphocytes # (Auto) 0.6 K/uL (1.3-3.6) Monocytes # (Auto) 0.6 K/uL (0.3-1.0) Eosinophils # (Auto) 0.0 K/uL (0.0-0.5) Basophils # (Auto) 0.0 K/uL (0.0-0.1) Nucleated RBC Absolute Count (auto) 0.00 K/uL Glomerular Filtration Rate Calc > 60.0 Calcium Level 7.7 mg/dl (8.4-10.2) Vital Signs Date Time Temp Pulse Resp B/P (MAP) Pulse Ox O2 Delivery O2 Flow Rate FiO2 02/04/19 11:09 97.6 85 94/51 (65) 97 Room Air 02/04/19 03:03 18 Pt able to participate in Eval: Yes Cardiovascular Status: Satisfactory Respiratory Status: Satisfactory Pain Managment: Unsatisfactory (Pt. tearful, 30 minutes after percocet dose 2 tabs. Toradol is being administered now. Pt rates pain 7/10 and is terarful.) PO Nausea/Vomiting: Satisfactory Temperature Management: Satisfactory Mental Status: Satisfactory Post-Op Hydration Status: Satisfactory Anesthesia Type: SAB Anesthesia Tolerance: She tolerated anesthesia well and her block is fully resolved as evidenced by full motor demonstrated. full sensation reported. Her HCTs are stable, abdomen soft. A CT done earlier with vague results, has upset her. She is verbally reassured. CORINE STUBBS CRNA Feb 04, 2019 11:49
[2019-02-04 15:07] VITALS: BP 98/47
[2019-02-04] MEDS: IBUPROFEN 800 MG TAB PO SCH (17:55)
[2019-02-04 19:15] VITALS: BP 104/56
[2019-02-04] MEDS: SIMETHICONE 80 MG CHEW CHEW PRN (19:49)
[2019-02-05 00:15] VITALS: BP 100/52
[2019-02-05] MEDS ORDERED: LOR5/325 PO (00:31)
[2019-02-05] MEDS ORDERED: IBUP800T37 PO (00:31)
--- NOTE | 2019-02-05 00:54 | OB/GYN Discharge Summary ---
Discharge Summary Reason for Hosp/Final Diag: (1) care following delivery Status: Acute Hospital Course & Plan: Patient was admitted to the hospital with c/o contractions. She was found to be making cervical change with her contractions. Due to her history of two previous sections, she was admitted to the hospital for repeat section. She was taken to the OR for repeat section and gave to a viable male . For further details please see the operative report. After surgery she was taken to the recovery area and then to her room. On postop day #1 patient was noted to have a low H/H and moderate abdominal distension. CT of the Abd/Pelvis was ordered which showed: CT ABDOMEN PELVIS W & W/O CONTRAST HISTORY: Abdominal distention post section. TECHNIQUE: CT abdomen and pelvis without and with intravenous contrast. One of the following dose optimization techniques was utilized in the performance of this exam: Automated exposure control; adjustment of the mA and/or kV according to the patient's size; or use of an iterative reconstruction technique. Specific details can be referenced in the facility's radiology CT exam operational policy. CONTRAST: None. COMPARISON: None. FINDINGS: Visualized lung bases: Slightly decreased attenuation cardiac blood pool relative to myocardium suggesting anemia. Hepatobiliary: Negative. Spleen: Negative; several small accessory splenules. Adrenals: Negative. Pancreas: Negative. Kidneys/: Nonobstructing 4 mm stone lower pole left kidney. Several too small to characterize low attenuating renal cortical foci, likely cysts. Balloontipped catheter within decompressed urinary bladder. Uterus is enlarged consistent with its recent state. Gas and intermediate attenuating debris within endometrial canal at lower uterine segment, presumably residual blood products. Separate from endometrium is a large hypoperfusing intermediate attenuating region or gross defect spanning the anterior wall of uterus, approximately 11 cm length by 5 cm AP and 8 cm transverse (series 6/image 94 and series 8/image 71). Ovaries not able to be well visualized. Mild bilateral adnexal varices. GI: Stomach unremarkable. Scattered gas-filled small bowel loops without ayaan distention. Proximal colon gas-filled and prominent but without gross wall thickening. Distal colon decompressed. Vessels/spaces/nodes: Small volume simple attenuating perihepatic free fluid. Small volume additional free fluid within pelvis, dependently layering within cul-de-sac, intermediate in attenuation and concerning for hemorrhage (series 2/image 104). No grossly organized fluid collection. No bulky adenopathy. Scattered punctate foci of pneumoperitoneum consistent with recent surgery. Bones/soft tissues: Edema, fluid and gas scattered throughout the rectus lee ths bilateral and infraumbilical. Sequela of recent section within the subcutaneous tissues. Osseous structures unremarkable. IMPRESSION: 1. appearing uterus with large hypoperfusing region or defect spanning the anterior wall as above. Although nonspecific and not a typical CT appearance for dehiscence, considerations would include edema, vascular compromise or atypical appearance of dehiscence with contained hematoma. 2. Small volume free fluid right upper quadrant and pelvis, within the pelvis partially hemorrhagic with layering blood products. 3. Gas-filled but nondistended small bowel loops with gas filled and mildly distended but otherwise unremarkable proximal colon most suggestive of mild ileus. 4. Findings suggestive of anemia. Results were called to Dr. LIBAN ARELLANO at 02/04/2019 10:54 AM. Report Dictated By: Ed Dey MD at 02/04/2019 10:27 AM Report E-Signed By: Ed Dey MD at 02/04/2019 10:55 AM On postoperative day #2 she continued to have moderate abdominal distension without passing flatus or having a bowel movement and began complaining of RLQ pain. At this time the decision was made to insert an NG tube for intestinal de compression, make patient NPO and administer a rectal suppository. Shortly after placement and with 500 cc of fluid collected from the NG tube, she began feeling better and noticed less distension. The NG tube was removed later that evening and she was reported to have had three bowel movements overnight. On postoperative day# 3, her condition was improved and she was stable to discharge home with appropriate follow up. (2) Postoperative ileus Status: Resolved Lates Vital Signs Vital Signs Date Time Temp Pulse Resp B/P (MAP) Pulse Ox O2 Delivery O2 Flow Rate FiO2 02/04/19 15:07 97.3 72 14 98/47 (64) 96 Room Air Weight (Pounds): 146 Result Diagram: 02/04/19 1314 02/04/19 0558 Condition: Improved Discharge: Home Home Meds Active Scripts Hydrocodone Bit/Acetaminophen (HYDROCODON-ACETAMINOPHEN 5-325) 1 Each Tablet, 1 EACH PO Q4-6H PRN for PAIN, #30 TAB 0 Refills Prov:LIBAN ARELLANO MD 02/05/19 Ibuprofen (IBUPROFEN) 800 Mg Tablet, 1 TAB PO Q8H PRN for PAIN, #30 TAB 0 Refil ls Take with food for pain no closer than every 8 hours. Prov:LIBAN ARELLANO MD 02/05/19 Reported Medications Vits W-Ca,Fe,Fa(<1MG) ( VITAMINS) 1 Each Tablet, 1 EACH PO DAILY, TAB 01/26/19 Albuterol Sulfate 90 Mcg/Act (PROAIR HFA 90 MCG/ACT) 8.5 Gm Hfa.aer.ad, 1-2 PUFF IH 3-4XD, INHALER 09/21/16 Follow up with: Dr. Smith [phone] Follow up in: 2 wks PO Discharge Diet: As Tolerates Discharge Activity: No Heavy Lifting x 6 wks, Pelvic Rest Special Instructions: No driving while on pain medications. LIBAN ARELLANO MD Feb 05, 2019 00:50
[2019-02-05] MEDS: IBUPROFEN 800 MG TAB PO SCH ×3 (01:55→21:24)
[2019-02-05] MEDS: SIMETHICONE 80 MG CHEW CHEW PRN (04:07)
[2019-02-05 04:22] VITALS: BP 103/61
[2019-02-05 07:20] LABS: PLATELET COUNT, AUTOMATED 207 K/uL (150-450)
[2019-02-05 07:44] VITALS: BP 101/61
[2019-02-05] MEDS ORDERED: LIDOCAINE 2% 200MG/10ML UROJET TP ONE (08:15)
[2019-02-05] MEDS ORDERED: MORPHINE 2 MG/ML SYR ONE (08:26)
[2019-02-05] MEDS: DLR(*) 1000 ML BAG 1,000 ML IV PRN (08:30)
--- NOTE | 2019-02-05 08:45 | OB/GYN Progress Note ---
OB Subjective Progress Notes Subjective Patient doing well overnight without any complaints. She denies TYSON, CP, SOB, F/C, N/V, RUQ pain, changes in vision, vaginal bleeding or discharge. She is tolerating PO diet. Ambulating. Voiding on her own. Pain controlled. She has not yet had a bowel movement or passed flatus. She reports some TTP of the RLQ. H/H stable. VSS. GI: NEG Nausea, NEG Vomiting, NEG Flatus, NEG Bowel Movement : Voiding Well Pain: Comfortable Neurological: No Headache, No Other Eyes: No Visual Disturbances OB Objective Physical Exam Vital Signs Date Time Temp Pulse Resp B/P (MAP) Pulse Ox O2 Delivery O2 Flow Rate FiO2 02/05/19 07:44 97.9 67 14 101/61 (74) 94 Room Air Intake and Output 02/05/19 06:59 Intake Total 360 ml Output Total 950 ml Balance -590 ml Intake Oral 360 ml Output Urine Total 950 ml # Voids 2 General Appearance: Alert/Awake/No Acute Distress Neurological: No Gross deficits Eyes: Normal Extraocular Movement & Vison Respiratory: No Respiratory Distress Abdomen: Bowel Sounds Present (low pitched), Fundus Firm, Tender (RLQ), Other (Moderate distension continues.) Incision: Clean, Dry, Intact, Dermabond Extremities: No Cyanosis,Clubbing or Edema, Edema (1+ ) Psychological: Alert & Oriented X3, Appropriate Mood & Affect Result Diagram: 02/05/1902 02/05/19701 Assessment and Plan Post Op Day: 2 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 Patient to remain in house until return of bowel function and may be discharged there after. ) Problems: (1) care following delivery Status: Acute LIBAN ARELLANO MD Feb 05, 2019 08:45
[2019-02-05] MEDS ORDERED: BISACODYL 10 MG SUPP PR ONE ×2 (08:50→14:15)
[2019-02-05] MEDS ORDERED: DLR(*) 1000 ML BAG 1,000 ML IV PRN (08:50)
[2019-02-05] MEDS: FAMOTIDINE 20 MG TAB PO SCH ×2 (09:00→21:24)
[2019-02-05] MEDS: DOCUSATE CALCIUM 240 MG CAP PO SCH ×2 (09:00→21:23)
--- NOTE | 2019-02-05 09:27 | Anesthesia Post Eval Note ---
Anesthesia Post Eval Note Vital Signs Date Time Temp Pulse Resp B/P (MAP) Pulse Ox O2 Delivery O2 Flow Rate FiO2 02/05/19 07:44 97.9 67 14 101/61 (74) 94 Room Air Hematology Test 02/05/19 07:02 Red Blood Count 3.26 M/uL (4.17-5.56) Mean Corpuscular Volume 86.5 fL (80.0-96.0) Mean Corpuscular Hemoglobin 28.4 pg (26.0-33.0) Mean Corpuscular Hemoglobin Concent 32.8 g/dL (32.0-36.0) Red Cell Distribution Width 14.5 % (11.5-14.5) Mean Platelet Volume 7.4 fL (7.2-11.1) Neutrophils (%) (Auto) 85.1 % (39.4-72.5) Lymphocytes (%) (Auto) 6.7 % (17.6-49.6) Monocytes (%) (Auto) 7.4 % (4.1-12.4) Eosinophils (%) (Auto) 0.6 % (0.4-6.7) Basophils (%) (Auto) 0.2 % (0.3-1.4) Nucleated RBC Relative Count (auto) 0.0 /100WBC Neutrophils # (Auto) 7.4 K/uL (2.0-7.4) Lymphocytes # (Auto) 0.6 K/uL (1.3-3.6) Monocytes # (Auto) 0.6 K/uL (0.3-1.0) Eosinophils # (Auto) 0.1 K/uL (0.0-0.5) Basophils # (Auto) 0.0 K/uL (0.0-0.1) Nucleated RBC Absolute Count (auto) 0.00 K/uL Sodium Level 134 mmol/L (137-145) Potassium Level 3.9 mmol/L (3.5-5.0) Chloride Level 107 mmol/L (98-107) Carbon Dioxide Level 22 mmol/L (22-31) Blood Urea Nitrogen 8 mg/dl (7-18) Creatinine 0.40 mg/dl (0.52-1.04) Glomerular Filtration Rate Calc > 60.0 Random Glucose 86 mg/dl (75-110) Calcium Level 8.0 mg/dl (8.4-10.2) Total Bilirubin 0.2 mg/dl (0.2-1.3) Aspartate Amino Transf (AST/SGOT) 23 U/L (0-35) Alanine Aminotransferase (ALT/SGPT) 27 U/L (0-56) Alkaline Phosphatase 82 U/L (0-126) Total Protein 4.9 g/dl (6.3-8.2) Albumin 2.5 g/dl (3.5-5.0) Chemistry Test 02/05/19 07:02 White Blood Count 8.7 k/uL (4.5-11.0) Red Blood Count 3.26 M/uL (4.17-5.56) Hemoglobin 9.3 g/dL (12.0-16.0) Hematocrit 28.2 % (34.0-47.0) Mean Corpuscular Volume 86.5 fL (80.0-96.0) Mean Corpuscular Hemoglobin 28.4 pg (26.0-33.0) Mean Corpuscular Hemoglobin Concent 32.8 g/dL (32.0-36.0) Red Cell Distribution Width 14.5 % (11.5-14.5) Platelet Count 207 K/uL (150-450) Mean Platelet Volume 7.4 fL (7.2-11.1) Neutrophils (%) (Auto) 85.1 % (39.4-72.5) Lymphocytes (%) (Auto) 6.7 % (17.6-49.6) Monocytes (%) (Auto) 7.4 % (4.1-12.4) Eosinophils (%) (Auto) 0.6 % (0.4-6.7) Basophils (%) (Auto) 0.2 % (0.3-1.4) Nucleated RBC Relative Count (auto) 0.0 /100WBC Neutrophils # (Auto) 7.4 K/uL (2.0-7.4) Lymphocytes # (Auto) 0.6 K/uL (1.3-3.6) Monocytes # (Auto) 0.6 K/uL (0.3-1.0) Eosinophils # (Auto) 0.1 K/uL (0.0-0.5) Basophils # (Auto) 0.0 K/uL (0.0-0.1) Nucleated RBC Absolute Count (auto) 0.00 K/uL Glomerular Filtration Rate Calc > 60.0 Calcium Level 8.0 mg/dl (8.4-10.2) Total Bilirubin 0.2 mg/dl (0.2-1.3) Aspartate Amino Transf (AST/SGOT) 23 U/L (0-35) Alanine Aminotransferase (ALT/SGPT) 27 U/L (0-56) Alkaline Phosphatase 82 U/L (0-126) Total Protein 4.9 g/dl (6.3-8.2) Albumin 2.5 g/dl (3.5-5.0) Pt able to participate in Eval: Yes Cardiovascular Status: Satisfactory Respiratory Status: Satisfactory Pain Managment: Satisfactory PO Nausea/Vomiting: Unsatisfactory (Pt has continuing RLQ pain with apparent distention and hypoactive bowel sounds. She has not vomid and has b ambulated the halls.) Temperature Management: Satisfactory Mental Status: Satisfactory Post-Op Hydration Status: Satisfactory Anesthesia Type: SAB (Post op day 2. Bleeding has been ruled out. Patient has Ilius and is having an NGT placed to relieve the resultant bloating.) Anesthesia Tolerance: No anesthesia related complications although continued pain management and attention to ilius is being followed by Que Vail MD. CORINE STUBBS CRNA Feb 05, 2019 09:27
[2019-02-05] MEDS: KETOROLAC 30 MG/ML VIAL IVP PRN ×2 (10:00→15:34)
--- NOTE | 2019-02-05 10:32 | RADIOLOGY IMAGING REPORT ---
FACILITY: [facility] PATIENT NAME: Almita Ovalle : 1990 MR: [id number] V: [id number] EXAM DATE: ORDERING PHYSICIAN: LIBAN ARELLANO TECHNOLOGIST: [place] [facility] [place] Almita Ovalle : 1990 Visit/Account:[id number] Date of Sevice: 02/05/2019 Study: CHEST SINGLE AP Indication: Nasogastric tube placement Comparison study: None available Findings: AP view of the chest and upper abdomen demonstrates presence of a nasogastric tube with the tip overlying the body of the stomach. There is no evidence of chest abnormality. There is a large a mount of gas present within the colon incidentally noted. There is no evidence of pneumoperitoneum. IMPRESSION: Nasogastric tube overlying body of stomach. Report Dictated By: Nas Petersen at 02/05/2019 10:26 AM Report E-Signed By: Nas Petersen at 02/05/2019 10:27 AM WSN:[id number]
[2019-02-05] MEDS: MORPHINE 2 MG/ML SYR IVP PRN ×3 (10:33→17:39)
[2019-02-05 11:35] VITALS: BP 114/65
[2019-02-05 14:56] VITALS: BP 100/54
[2019-02-05] MEDS ORDERED: INFLUENZA VIRUS VAC 0.5ML SYR IM ONLY ONE (17:55)
[2019-02-05] MEDS ORDERED: DIPHTH/TETANUS/ACEL. PERTUSSIS IM ONLY ONE (17:55)
[2019-02-05] MEDS ORDERED: MEASLES,MUMP,RUBELLA VAC 0.5ML SUBQ ONE (17:55)
[2019-02-05] MEDS ORDERED: IBUPROFEN 800 MG TAB PO SCH (18:00)
[2019-02-05 19:41] VITALS: BP 114/61
[2019-02-06 02:44] VITALS: BP 99/60
[2019-02-06] MEDS: IBUPROFEN 800 MG TAB PO SCH (06:24)
[2019-02-06 07:30] VITALS: BP 98/58
[2019-02-06] MEDS: SIMETHICONE 80 MG CHEW CHEW PRN (08:44)
[2019-02-06] MEDS: DOCUSATE CALCIUM 240 MG CAP PO SCH (08:44)
[2019-02-06] MEDS: FAMOTIDINE 20 MG TAB PO SCH (08:44)
--- NOTE | 2019-02-06 11:28 | OB/GYN Progress Note ---
OB Subjective Progress Notes Subjective Pt is doing well s/p repeat delivery POD #3. She is feeling ready to go home and has no complaints. She has been passing gas well and has had 3 BMs. She feels is going well and she has a good latch. She has light bleeding, but no clots. She denies TYSON, vision changes, BLE calf tenderness, or RUQ pain. She has adequate support at home. GI: POS Flatus, POS Bowel Movement (3 bm); NEG Nausea, NEG Vomiting : Voiding Well Pain: Moderate, Tolerating PO Pain Meds Neurological: No Headache Eyes: No Visual Disturbances OB Objective Physical Exam Vital Signs Date Time Temp Pulse Resp B/P (MAP) Pulse Ox O2 Delivery O2 Flow Rate FiO2 02/06/19 07:30 99.2 100 18 98/58 (71) 93 Room Air Intake and Output 02/06/19 06:59 Intake Total 1336 ml Output Total 900 ml Balance 436 ml Intake Oral 500 ml IV Total 836 ml Gastric Drainage Total 700 ml Other 200 ml # Voids 1 # Bowel Movements 3 General Appearance: Alert/Awake/No Acute Distress Neurological: No Gross deficits Eyes: Normal Extraocular Movement & Vison ENT: Normal Cardiovascular: Normal Rhythm & Peripheral Pulses Respiratory: No Respiratory Distress Abdomen: Bowel Sounds Present (low pitched), Fundus Firm, Tender (RLQ) Incision: Clean, Dry, Intact, Dermabond Extremities: No Cyanosis,Clubbing or Edema, Warm, Edema (1+ ) Psychological: Alert & Oriented X3, Appropriate Mood & Affect Result Diagram: 02/05/19 0702 02/05/19 0702 Assessment and Plan Hospital Day: 3 [employer] Assessment: Stable [employer]INE[employer] Plan: Advance Activity, Discharge Home Today Problems: (1) care following delivery Status: Acute Assessment & Plan: The plan is for the pt to go home today. Dr. Vail has completed the discharge summary. Pain meds have been filled. Pt will follow up in [address] Alcocer office. YANNI ELENA CNM Feb 06, 2019 11:28
== END 2019-02-06 12:40 | disposition home or self-care (01) | DRG 784 ==
LOC: OB 12:48
PROVIDERS: ADMIT Obstetrics & Gynecology; ATTEND Obstetrics & Gynecology
PROC: 10D00Z1 Extraction of Products of Conception, Low, Open Approach (ICD-10-PCS; principal; 2019-02-03 16:00)
PROC: 0UB70ZZ Excision of Bilateral Fallopian Tubes, Open Approach (ICD-10-PCS; 2019-02-03 16:00)
PROC: 0D9670Z Drainage of Stomach with Drainage Device, Via Natural or Artificial Opening (ICD-10-PCS; 2019-02-05)
DX: O34.211 Maternal care for low transverse scar from previous cesarean delivery (principal); F84.0 Autistic disorder; K91.89 Other postprocedural complications and disorders of digestive system; O77.0 Labor and delivery complicated by meconium in amniotic fluid; O99.344 Other mental disorders complicating childbirth; F90.9 Attention-deficit hyperactivity disorder, unspecified type; Y92.230 Patient room in hospital as the place of occurrence of the external cause; Y83.8 Other surgical procedures as the cause of abnormal reaction of the patient, or of later complication, without mention of misadventure at the time of the procedure; Y76.3 Surgical instruments, materials and obstetric and gynecological devices (including sutures) associated with adverse incidents; Z3A.38 38 weeks gestation of pregnancy; Z37.0 Single live birth; Z88.2 Allergy status to sulfonamides
CPT/HCPCS: 36415; 71045; 74178; 82040; 82247; 82310; 82374; 82435; 82565; 82947; 84075; 84132; 84155; 84295; 84450; 84460; 84520; 85014; 85018; 85025; 86850; 86900; 86901; 88302; J0690; J1170; J1885; J2250; J2270; J2405; J2550; J2704; J3010; J7120; Q9967